=== PATIENT | male | born 1960 | race Caucasian/White ===

== ENCOUNTER 2024-06-07 13:41 | Emergency (ER) | payer SELFPAY ==
[~2024-06-07] VITALS: Ht 175.3 cm; Wt 61.2 kg
[2024-06-07 14:11] VITALS: BP 123/81; PULSE 86; RESP 18; TEMP 98.2; O2SAT 97
[2024-06-07 14:38] VITALS: BP 142/70; PULSE 74; RESP 18; TEMP 97.3; O2SAT 99
== END 2024-06-07 14:41 ==
LOC: MED 13:41
DX: Z02.89 Encounter for other administrative examinations (principal); I10 Essential (primary) hypertension; E78.5 Hyperlipidemia, unspecified; I25.2 Old myocardial infarction
CPT/HCPCS: 99283